=== PATIENT | female | born 1970 | race Caucasian/White ===

== ENCOUNTER 2021-04-28 10:36 | Outpatient (CLI) | payer OTHER, SELFPAY ==
--- NOTE | 2021-04-28 10:49 | XR_ITS ---
WS: [email or web address] XR foot LT 2V 27702 REASON FOR EXAM: R52 - Pain, unspecified FINDINGS: No fracture or focal bone lesion. Joint spaces of the left forefoot, midfoot, and hindfoot are intact and relatively well-preserved. No soft tissue abnormality. XR/XR foot LT 2V 28162 IMPRESSION: No significant abnormality of the left foot.
--- NOTE | 2021-04-28 10:49 | XR_ITS ---
WS: [email or web address] XR sacroiliac jts m 3V 19057 REASON FOR EXAM: L40.9 - Psoriasis, unspecified FINDINGS: No fracture or focal bone lesion. Sacroiliac joints are well defined. No erosions. No effusion or bony bridging. Mild periarticular sclerosis. XR/XR sacroiliac jts m 3V 42778 IMPRESSION: No findings of sacroiliitis.
--- NOTE | 2021-04-28 10:49 | XR_ITS ---
WS: [email or web address] XR hand LT 2V 38556 REASON FOR EXAM: R21 - Rash and other nonspecific skin eruption FINDINGS: The joint spaces of the left hand are intact and well maintained. No fracture or focal bone abnormality. No soft tissue abnormality. XR/XR hand LT 2V 84308 IMPRESSION: No significant abnormality of the left hand.
--- NOTE | 2021-04-28 10:49 | XR_ITS ---
WS: [email or web address] XR hand RT 2V 06260 REASON FOR EXAM: R21 - Rash and other nonspecific skin eruption FINDINGS: Joint spaces of the right hand are intact and relatively well-preserved. No fracture or focal bone abnormality. No soft tissue abnormality. XR/XR hand RT 2V 37109 IMPRESSION: No significant abnormality of the right hand.
--- NOTE | 2021-04-28 10:49 | XR_ITS ---
WS: [email or web address] XR foot RT 2V 69217 REASON FOR EXAM: R52 - Pain, unspecified FINDINGS: No fracture or focal bone lesion. The joint spaces of the right forefoot, midfoot, and hindfoot are intact and relatively well-preserve d. There is prominent medial elongation of the tarsal navicular, a variant of normal. No soft tissue abnormality. XR/XR foot RT 2V 33676 IMPRESSION: No significant abnormality of the right foot.
[2021-04-28 12:10] LABS: Erythrocyte Sedimentation Rate 21 mm/hr (0-15)
[2021-04-28 12:49] LABS: C Reactive Protein 2.9 mg/L (0.0-4.9); Creatine Phosphokinase 98 U/L (26-192); Hepatitis B Core AB, Total Non-Reactive (Nonreactive); Hepatitis B Surface Antigen Non-Reactive (Nonreactive); Hepatitis C Virus Antibody Non-Reactive (Nonreactive); Vitamin B12 708 pg/mL (232-1245)
[2021-05-01 12:07] LABS: THYROID PEROXIDASE ANTIBODIES <1 IU/mL (<9)
[2021-05-01 13:07] LABS: COMPLEMENT COMPONENT C3C 132 mg/dL (83-193); COMPLEMENT COMPONENT C4C 29 mg/dL (15-57); COMPLEMENT, TOTAL (CH50) >60 U/mL (31-60)
[2021-05-01 13:46] LABS: HLA-B27 NEGATIVE (NEGATIVE)
[2021-05-01 15:33] LABS: ANA SCREEN, IFA NEGATIVE (NEGATIVE)
[2021-05-01 15:48] LABS: CENTROMERE B ANTIBODY <1.0 NEG AI (<1.0 NEG); JO-1 ANTIBODY <1.0 NEG AI (<1.0 NEG); RNP ANTIBODY <1.0 NEG AI (<1.0 NEG); SCL-70 ANTIBODY <1.0 NEG AI (<1.0 NEG); SJOGREN'S ANTIBODY (SS-A) <1.0 NEG AI (<1.0 NEG); SM ANTIBODY <1.0 NEG AI (<1.0 NEG); SS-B <1.0 NEG AI (<1.0 NEG)
[2021-05-01 15:57] LABS: Immunoglobulin A 156 mg/dL (47-310)
[2021-05-02 12:27] LABS: DNA AB (DS) CRITHIDIA,IFA NEGATIVE (NEGATIVE)
[2021-05-03 08:07] LABS: Gliadin Ab.IgA <1.0 U/mL; Gliadin Ab.IgG <1.0 U/mL; Tissue Transglutaminase IgA Ab <1.0 U/mL; Tissue transglutaminase Ab.IgG <1.0 U/mL
== END 2021-04-28 10:37 | disposition home or self-care (01) ==
LOC: RAD 10:47
PROVIDERS: PCP Internal Medicine; Visit Provider Internal Medicine
DX: R21 Rash and other nonspecific skin eruption (principal); L40.9 Psoriasis, unspecified; M45.0 Ankylosing spondylitis of multiple sites in spine; Z11.59 Encounter for screening for other viral diseases; D64.9 Anemia, unspecified; M25.50 Pain in unspecified joint; R53.83 Other fatigue
CPT/HCPCS: 36415; 72202; 73120; 73620; 82550; 82607; 82784; 83516; 85651; 86140; 86160; 86162; 86235; 86255; 86376; 86431; 86704; 86803; 86812; 87340

== ENCOUNTER 2021-05-11 12:21 | Outpatient (CLI) | payer OTHER, SELFPAY ==
--- NOTE | 2021-05-11 13:31 | ECG_ITS ---
[facility] Test Date: 2021-05-11 Pat Name: Ana Cristina Medina Department: Room: Gender: Female Mapping Technician: : 1970 Requested By: Halley Preston Order Number: [id number] Kevin MD: Katherin Cruz M.D. 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 [id number]
== END 2021-05-11 12:22 | disposition home or self-care (01) ==
LOC: RT 12:24
PROVIDERS: PCP Internal Medicine; Visit Provider Internal Medicine
DX: R52 Pain, unspecified (principal)
CPT/HCPCS: 93005